=== PATIENT | male | born 1950 | race Caucasian/White ===

== ENCOUNTER 2025-05-16 14:03 | Emergency (ER) | payer OTHER, SELFPAY ==
--- OUTSIDE RECORDS SUMMARY | 2025-04-09 05:30 | XMS_ITS | Continuity of Care Document ---
Author Organization [facility] Address [address] [place] [address] Phone Care Team Providers Care Upholstery Handler Name Role Phone Rubina SMITH Roney Unavailable Unavailable Allergies, Adverse Reactions, Alerts Substance Reaction Status Criticality No Known Allergies Active No Inform ation Medications Medication Instructions Dosage Effective Dates (start - stop) Status Comments losartan 50 mg tablet take 1 tablet by oral route every day 50 MG - Active colestipol 1 gram tablet take 2 tablet by oral route 2 times every day swallowing whole with any liquid. Do not crush, chew and/or divide. 2 G - Active Restasis 0.05 % eye drops in a dropperette instill 1 drop by ophthalmic route every 12 hours into affected eye(s) 1.00 drop - Active Rocklatan 0.02 %-0.005 % eye drops INSTILL 1 DROP IN EACH EYE AT BEDTIME - Active Artificial Tears (PF) 0.1 %-0.3 % drops in a dropperette [place] BID OU - Active macular shield multivitamin ORAL TABLET 2 PO BID - Active doxazosin 2 mg tablet - Active furosemide 20 mg tablet TAKE 1 TABLET BY MOUTH TWICE A DAY - Active metoprolol tartrate 25 mg tablet - Active pantoprazole 40 mg tablet,delayed release - Active lisinopril 20 mg tablet TAKE 1 TABLET BY MOUTH EVERY DAY - Active potassium chloride ER 10 mEq tablet,extended release TAKE 1 TABLET BY MOUTH EVERY DAY - Active cyclosporine 0.05 % eye drops in a dropperette INSTILL ONE DROP IN BOTH EYES TWICE A DAY - Active Restasis 0.05 % eye drops in a dropperette instill 1 drop by ophthalmic route every 12 hours into affected eye(s) 1.00 drop - No Longer Active Procedures Procedure Date VISUAL FIELD- EXTENDED GDX Retina EYE EXAM & TREATMENT FUNDUS PHOTOGRAPHY EYE EXAM ESTABLISHED PAT Results Test Name Date and Time Measure Units Reference Range Abnormal Flag Status Commen ts Panel Description: [id number] Final Image Zeiss Result 3 Panel Description: [id number] Final Image Zeiss Result 4 Panel Description: [id number] Final Image Zeiss Result 1 Panel Description: [id number] Final Image Zeiss Result 2 Advance Directives Directive Yes / No Effective Date File Name No Information Encounters Encounter Description Practice Location Reason(s) For Visit Diagnoses Date Provider Providers Copied on Encounter [facility], [address] [place] [address], [id number], [place] tel:[phone] [facility] macular degeneration (chief complaint) Anterior corneal dystrophy of both eyesPseudoph akiaKeratoco njunctivitis sicca of both eyesPVD (posterior vitreous detachment), both eyesSquamous blepharitis of both upper and lower eyelid of right eyeSquamous blepharitis of both upper and lower eyelid of left eyePrimary open angle glaucoma (POAG) of both eyes, mild stageNonexud ative age-related macular degeneration , bilateral, early dry stageChronic allergic conjunctivit is 5 Rubina Sim. [address] [facility], [address], [place], [place], [id number], [place]. tel:[phone] Referring Provider: Roney Cespedes, [id number] [place] [address] [address], [place], [address]. tel:[phone] [facility], [address] [place] [address], [place], [place], [id number], tel:[phone] [facility] No Information 5 Rubina Sim. [address] [facility], [address], [place], [place], [id number], . tel:[phone] Referring Provider: Roney Cespedes, [address] [place] [address] [address], [place], [address]. tel:[phone] [facility], [address] [place] [address], [id number], tel:[phone] [facility] Follow up Glaucoma (chief complaint) Chronic allergic conjunctivit isNonexudati ve age-related macular degeneration , bilateral, early dry stagePrimary open angle glaucoma (POAG) of both eyes, mild stageKeratoc onjunctiviti s sicca of both eyesPseudoph akiaAnterior corneal dystrophy of both eyesSquamous blepharitis of both upper and lower eyelid of right eyeSquamous blepharitis of both upper and lower eyelid of left eyePVD (posterior vitreous detachment), both eyes 5 Rubina Sim. [address] [place] [address], [address], [place], [place], [id number], [place]. tel:[phone] Referring Provider: Roney Cespedes, [address] [place] [address] [address], [place], [address]. tel:[phone] [facility], [address] [place] [address], [id number], tel:[phone] [facility] Chronic allergic conjunctivit isNonexudati ve age-related macular degeneration , bilateral, early dry stagePrimary open angle glaucoma (POAG) of both eyes, mild stageKeratoc onjunctiviti s sicca of both eyesPseudoph akiaAnterior corneal dystrophy of both eyesSquamous blepharitis of both upper and lower eyelid of right eyeSquamous blepharitis of both upper and lower eyelid of left eyePVD (posterior vitreous detachment), both eyes 5 Rubina Miller [address], [address], [place], [id number], [place]. tel:[phone] Family History Family Member Type Diagnosis Age At Onset Problem Family history of Macular de generation Payers Payer name Insurance type Covered democrat ID Authorchar morton(s) [employer] H[employer] [id number] Social History Type Description Quantity Date Captured Comments Alcohol Use Details Caffeine Use Details Unknown Tobacco Use Status Current non-smoker Smoking Status Never smoker Sex Male Chief Complaint And Reason For Visit From encounter dated '04/09/2025 11:30'. macular degeneration (chief complaint). Description: The 75 year old patient presents for evaluation of macular degeneration in the right eye and left eye. The condition is significant. It affects OU. It occurs always. Pt states about the same in terms of eyes. Reason For Referral Reason For Referral No Information Plan Of Treatment Date Type Action Status Appointment Roney Brown-6MO BOOKED Future Order: Radiology Order Ze iss VF1 OA STACY ([id number]), Sent on: Sent History Of Present Illness Encounter Date Complaint History Of Prese nt Illness macular degeneration The 75 year old patient presents for evaluation of macular degeneration in the right eye and left eye. The condition is significant. It affects OU. It occurs always. Pt states about the same in terms of eyes. Follow up Glaucoma The 74 year o ld patient presents for evaluation of Follow up Glaucoma in the right eye and left eye. 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 Impression/Plan Related to Prima ry open angle glaucoma (POAG) of both eyes, mild stage Impression/Plan Related to Anter ior corneal dystrophy of both eyes Impression/Plan Related to Pseud ophakia Impression/Plan Related to Kerat oconjunctivitis sicca of both eyes Impression/Plan Related to PVD ( posterior vitreous detachment), both eyes Impression/Plan Related to Squam ous blepharitis of both upper and lower eyelid of left eye Impression/Plan Related to Anter ior corneal dystrophy of both eyes Impression/Plan Related to Pseud ophakia Impression/Plan Related to Kerat oconjunctivitis sicca of both eyes Impression/Plan Related to PVD ( posterior vitreous detachment), both eyes Impression/Plan Related to Squam ous blepharitis of both upper and lower eyelid of left eye Impression/Plan Related to Squam ous blepharitis of both upper and lower eyelid of right eye Impression/Plan Related to Prima ry open angle glaucoma (POAG) of both eyes, mild stage Impression/Plan Related to Nonex udative age-related macular degeneration, bilateral, early dry stage Impression/Plan Related to Chron ic allergic conjunctivitis Impression/Plan Related to PVD ( posterior vitreous detachment), both eyes Impression/Plan Related to Squam ous blepharitis of both upper and lower eyelid of left eye Impression/Plan Related to Squam ous blepharitis of both upper and lower eyelid of right eye Impression/Plan Related to Anter ior corneal dystrophy of both eyes Impression/Plan Related to Pseud ophakia Impression/Plan Related to Kerat oconjunctivitis sicca of both eyes Impression/Plan Related to Prima ry open angle glaucoma (POAG) of both eyes, mild stage Impression/Plan Related to Nonex udative age-related macular degeneration, bilateral, early dry stage Impression/Plan Related to Chron ic allergic conjunctivitis Assessments Type Assessment Date assessment Anterior corneal dystrophy of hilary th eyes impression Anterior corneal dystrophy of hilary th eyes: H18.593. assessment Pseudophakia impression Pseudophakia: Z96.1. assessment Keratoconjunctivitis sicca of hilary th eyes impression Keratoconjunctivitis sicca of hilary th eyes: H16.223. assessment PVD (posterior vitreous detachme nt), both eyes impression PVD (posterior vitreous detachme nt), both eyes: H43.813. 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 assessment Primary open angle glaucoma (POA G) of both eyes, mild stage impression Primary open angle g laucoma (POAG) of both eyes, mild stage: H40.1131.Tmax: OD 20, OS 21 assessment Nonexudative age-rel ated macular degeneration, bilateral, early dry stage impression Nonexudative age-rel ated macular degeneration, bilateral, early dry stage: H35.3131. assessment Chronic allergic conjunctivitis impression Chronic allergic conjunctivitis: H10.45. Patient Care Teams Name Effective Dates (start - stop) Status Members No Information
--- NOTE | ~2025-05-16 | XR_ITS ---
EXAMINATION: XR tibia fibula RT 2V DATE: 05/16/2025 15:37 INDICATION: Trauma. Laceration. TECHNIQUE: 4 views of the right lower leg were obtained. COMPARISON: None. FINDINGS: No acute fracture or dislocation of the tibia and fibula are seen, particularly proximal tibia and fibula. Large soft tissue laceration is noted in the lateral aspect of proximal lower leg. 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 IMPRESSION: 1. No acute bony lesions of tibia and fibula. Significant soft tissue injury to the lateral aspect of proximal lower leg. Reviewed, dictated and finalized at location T. 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
[2025-05-16 14:19] VITALS: BP 158/73; PULSE 100; RESP 18; TEMP 36.8; O2SAT 100
--- OUTSIDE RECORDS SUMMARY | 2025-05-16 14:57 | XMS_ITS | Encounter Summary ---
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 Name Role Phone Oscar Desir MD Primary Care Provider + Haresh Murdock MD Unavailable [phone] Reason for Visit * Reason Onset Date Comments Medical Question/Miscellaneous 05/10/2025 Encounter Details Date Type Department Care Team (Late st Contact Info) Description 05/10/2025 Telephone [facility] [address] [address] Oscar Desir MD [address] [place] [address] Medical Question/Miscellaneous Social History Tobacco Use Types Packs/Day Years Used Date Smoking Tobacco: Never Smokeless Tobacco: Current Chew Alcohol Use Standard Drinks/Week Comments Yes 21 (1 standard drink = 0.6 oz pu re alcohol) PHQ-2 Answer Date Recorded PHQ-2 Total Score (If total score is 3 or more points, staff should administer the PHQ-9) 0 08/11/2024 AUDIT-C Answer Date Recorded Q1: How often do you have a drink containing alcohol? 4 or more times a week 01/19/2025 Q2: How many drinks containi ng alcohol do you have on a typical day when you are drinking? 1 or 2 Q3: How often do you have si x or more drinks on one occasion? Never 01/19/2025 Personal Safety Answer Date Recorded Have you ever been in or are you currently in a harmful physical or emotional relationship or is someone making you feel afraid or unsafe? 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 Renal function improved. Uric acid now normal. Continue allopurinol 100 mg daily. Foot is much better and swelling is down. Please call patient return 2 months TAL FLAT GRINDER * Telephone Encounter - Janice Ruiz - 05/10/2025 10:15 AM CST Medical Question/Miscellaneous Caller???s Concern: Patient stated she call the week before and is still waiting on someone to call you back about lab results and his follow up appt. Does message need to be routed? Yes-Action Needed TAL FLAT GRINDER documented in this encounter Plan of Treatment Not on file documented as of this encounter Visit Diagnoses Not on filedocumented in this encounter Care Teams Continuous Yarn Dyeing Machine Operator Relationship Specialty Start Date End Date Oscar Desir MD [address] [address] PCP - General 08/24/16 Haresh Murdock MD [address] [address] Medical Oncologist/Bar Host Medical Oncology 07/14/19 documented as of this encounter
--- OUTSIDE RECORDS SUMMARY | 2025-05-16 14:57 | XMS_ITS | Encounter Summary ---
Author Organization [facility] Healthcare Address [address] [place] [address] Care Team Providers Care Athletic Shoe Designer Name Role Phone Oscar Desir MD Primary Care Provider + Haresh Murdock MD Unavailable [phone] Reason for Visit * Reason Onset Date Comments Medical Question/Miscellaneous 04/19/2025 Encounter Details Date Type Department Care Team (Late st Contact Info) Description 04/19/2025 Telephone [facility] [address] [address] Oscar Desir MD [address] [place] [address] Medical Question/Miscellaneous Social History Tobacco Use [...] on file Legal Sex Male 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 Need to go over lab results. AL DESIGN TEACHER * Telephone Encounter - April Clemons - 04/19/2025 11:22 AM FLORAL DESIGN TEACHER Medical Question/Miscellaneous Caller???s Concern: Rani patient's spouse ( verified HIPAA) said her had gout and was put on medicine allopurinol. She wasn't sure if he needs a follow up appointment with Dr. Desir to check his kidneys or more labs. Please call her back to discuss. Does message need to be routed? Yes-Action Needed AL DESIGN TEACHER documented in this encounter Plan of Treatment Not on file documented as of this encounter Visit Diagnoses Not on filedocumented in this encounter Care Teams Athletic Shoe Designer Relationship Specialty Start Date End Date Oscar Desir MD [address] [facility] [address], [place] [address] PCP - General 08/24/16 Haresh Murdock MD [address], [place] [address] Medical Oncologist/Torpedo Shooter Medical Oncology 07/14/19 documented as of this encounter
--- OUTSIDE RECORDS SUMMARY | 2025-05-16 14:57 | XMS_ITS | Clinical Summary ---
Author Organization [facility] Address [address] [place] [address] Care Team Providers Care Montessori Lead Teacher Name Role Phone Oscar Desir MD Primary Care Provider + Haresh Murdock MD Unavailable [phone] Allergies Active Allergy Reactions Criticality Noted Date Comments Mold Unknown 12/11/2024 Medications cycloSPORINE (RESTASIS) 0.05 % ophthalmic emulsion Administer 1 drop into both eyes 2 (two) times a day Active Rocklatan 0.02-0.005 % drops INSTILL ONE DROP AT BEDTIME TO BOTH EYES DIRECTED 10/18/19 23 Active colestipoL (COLESTID) 1 gram tablet Take 1 tablet (1 g total) by mouth 2 (two) times a day 60 tablet 01/29/20 25 026 Active allopurinoL (ZYLOPRIM) 100 mg tablet Take 1 tablet (100 mg total) by mouth daily 90 tablet 1 01/30/20 25 026 Active losartan (COZAAR) 50 mg tablet Take 1 tablet (50 mg total) by mouth daily 90 tablet 1 01/30/[address] (PROTONIX) 40 mg EC tablet TAKE 1 TABLET BY MOUTH EVERY DAY 90 tablet 1 01/31/20 25 Active furosemide (LASIX) 20 mg tablet TAKE 1 TABLET BY MOUTH TWICE A DAY 180 tablet 1 02/02/20 25 Active ketoconazole (NIZORAL) 2 % shampoo Apply topically 2 (two) times a week Apply to damp skin on danielle and scalp, lather, leave on 5 minutes, and rinse 120 mL 3 02/12/20 25 Active predniSONE (DELTASONE) 10 mg tablet Take 2 tablets (20 mg) by mouth daily 30 tablet 04/05/20 25 026 Active metoprolol tartrate (LOPRESSOR) 25 mg immediate release tablet TAKE 1 TABLET BY MOUTH TWICE A DAY 180 tablet 1 04/24/20 25 Active metoprolol tartrate (LOPRESSOR) 25 mg immediate release tablet TAKE 1 TABLET BY MOUTH TWICE A DAY 180 tablet 2 08/29/19 25 025 Discontinued Active Problems Problem Noted Date Diagnosed Date Tophi 01/28/2025 Irritable bowel syndrome with diarrhea Glaucoma 12/11/2024 Mixed hyperlipidemia 08/11/2024 Pancreatic cyst 08/11/2024 Diverticulosis of large inte francine without perforation or abscess without bleeding 01/24/2023 Polyp of colon 01/24/2023 Stage 3a chronic kidney disease 02/13/2022 Edema 11/16/2020 Assessment & Plan (11/16/2020 4:54 PM CDT): Stable, consider increase Lasix dosage, check labs today to assess renal function and electrolytes Benign prostatic hyperplasia 11/16/2020 Assessment & Plan (11/16/2020 4:54 PM CDT): No significant obstructive symptoms, repeat PSA and urinalysis today Venous stasis dermatitis of both lower extremiti es 03/16/2020 Assessment & Plan (11/16/2020 4:55 PM CDT): No ulceration noted, consider steroid cream, compression stocking, will follow- up with derm Leg vein thromboembolism, superficial, right GERD (gastroesophageal reflux disease) 9 Assessment & Plan (11/16/2020 4:55 PM CDT): Asymptomatic, continue proton pump inhibitor, encouraged weight loss Assessment & Plan (12/04/2018 7:35 AM CDT): Improved, continue current regimen Abnormal CT scan of lung 11/30/2018 Assessment & Plan (11/30/2018 9:06 AM CDT): Question of pneumonia. I do not see clinical signs of this and have stopped the IV antibiotics. Can reconsider if his clinical situation warrants it. To use IS for atelectasis and pneumonia prevention. Colon carcinoma 11/19/2018 Assessment & Plan (11/16/2020 4:55 PM CDT): Status post resection October of 2018 no evidence disease, repeat CEA next visit Assessment & Plan (12/02/2018 7:55 AM CDT): Status post laparoscopic right colectomy about 2 weeks ago, ileus improved Assessment & Plan (11/24/2018 8:58 AM CDT): Postop day 4, status post laparoscopic right colectomy. Path noted. Ileus persist to but may be improved slightly, observe off NG tube, consider TPN if not resolved Syncope 11/14/2018 Assessment & Plan (12/02/2018 7:55 AM CDT): No further symptoms, sinus rhythm on telemetry. MARY within normal limit, increase activity and observe Assessment & Plan (11/19/2018 8:21 AM CDT): No further symptoms, reveals sinus rhythm, hemoglobin stable, observe Hypertension, essential 11/14/2018 Assessment & Plan (11/16/2020 4:56 PM CDT): Blood pressure adequate, continue med, repeat labs today encouraged further weight loss Assessment & Plan (12/01/2018 8:28 AM CDT): Blood pressure stable observe current meds Assessment & Plan (11/24/2018 8:57 AM CDT): Blood pressure stable observe current meds Acute blood loss anemia 11/14/2018 Overview (11/16/2018): Added automatically from request for surgery [id number] Assessment & Plan (12/01/2018 8:30 AM CDT): Hemoglobin stable observe Resolved Problems Problem Noted Date Diagnosed Date Resolved Date Paronychia of finger, right 01/18/2025 01/28/2025 Finger swelling 08/11/2024 01/28/2025 Medicare annual wellness visit, subsequent 11/16/2020 03/21/2021 Assessment & Plan (11/16/2020 4:54 PM CDT): Colonoscopy 2019 unremarkable repeat 2022 Vaccine up-to-date except recommend shingles and Tdap later this year Skin lesion 11/16/2020 01/28/2025 Assessment & Plan (11/16/2020 4:54 PM CDT): Concern for possible skin cancer, refer to dermatology Ileus 11/22/2018 07/07/2019 Assessment & Plan (12/04/2018 7:34 AM CDT): Clinically improved, observe clear liquid diet and increase activity today Assessment & Plan (11/24/2018 8:56 AM CDT): NG tube removed by accident., passing flatus. Discussed with surgery, observe for now, continue IV fluid. Consider TPN if bowel function does not improve Acute kidney injury 11/15/2018 09/15/19 25 Assessment & Plan (12/04/2018 7:35 AM CDT): Renal function back to baseline, continue gentle hydration until p.o. Intake increased Assessment & Plan (11/21/2018 7:47 AM CDT): Renal function back to baseline, observe with current fluids Iron deficiency anemia 11/14/201811/30 Assessment & Plan (11/24/2018 8:56 AM CDT): Hemoglobin stable, observe Hypokalemia 11/14/2018 11/30/2018 Assessment & Plan (11/19/2018 8:22 AM CDT): Potassium 3.3 will give 20 mEq p.o. Today Anemia 11/14/2018 11/30/2018 Overview (11/16/2018): Added automatically from request for surgery [id number] Gastrointestinal hemorrhage 11/14/2018 11/30/2018 Overview (11/16/2018): Added automatically from request for surgery [id number] Assessment & Plan (11/18/2018 9:43 AM CDT): Due to bleeding from the colon mass, await colorectal surgery input Hyponatremia 02/26/2018 11/30/2018 Encounters Date Type Department Care Team Description 05/10/2025 Telephone [facility] [address] [place] [address] [place] [phone] Oscar Desir MD Medical Question/Miscellane ous 04/28/2025 Telephone [facility] Care Organization [address] [place] [id number] Candace Bruner Chart Review (Med adherence) 04/19/[address] [address] Oscar Desir MD Medical Question/Miscellane ous 04/05/2025 2:38 PM HEALTH ADVOCATE - 04/05/2025 11:59 PM HEALTH ADVOCATE Hospital Encounter [facility] [address] [place] [address] Discharge Disposition: Discharge to home or self care 04/05/2025 2:15 PM HEALTH ADVOCATE Office Visit [address] [place] [phone] Oscar Desir MD Hypertension, essential (Primary Dx); Colon carcinoma (HCC); Gastroesophageal reflux disease, unspecified whether esophagitis present; Stage 3a chronic kidney disease (HCC); Edema, unspecified type; Irritable bowel syndrome with diarrhea; Gout, unspecified cause, unspecified chronicity, unspecified site 03/02/2025 11:30 AM CDT Procedure visit 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 Medicine Dermatology [address] [place] [phone] Vanesa Ragsdale PA Surgical pathology from Last 3 Months Immunizations Immunization Administration Dates Next Due COVID-19 mRNA ([employer]) 0.3 m L (30 mcg) vaccine (12 years and up) 04/02/2023 Influenza, Quadrivalent, Hig h Dose, Preservative Free, Intrr 04/22/2023,02/13/2022,03/21/2021,03/16 Influenza, Split 02/19/2018 Influenza, Trivalent, High D ose, Split, Preservative Free, Intramuscular 04/05/2025,02/24/2024,02/09/2019,02/26 Pfizer SARS-CoV-2 Monovalent Vaccination (12+ Yrs) PURPLE 03/01/2022,04/28/2021,10/04/2020,09/13 Pfizer Sars-Cov-2 Bivalent V accination (12+ YRS) 02/28/2022 Pneumococcal Conjugate PCV 13 08/08/2016 Pneumococcal Polysaccharide PPV23 01/17/2018 Surgical History Surgery Date Site/Laterality Comments CATARACT EXTRACTION Bilateral GLAUCOMA SURGERY LAPAROSCOPIC COLON RESECTION 05/27/2018 - 05/26/2019 Medical History Medical History Date Comments Hypertension Hypertension Hx Other Medical Psoriasis Anemia GERD (gastroesophageal reflux disease) Cataract Glaucoma Colon cancer (HCC) Family History Medical History Relation Name Comments Colon cancer Father Cancer, colon; Other Mother ? heart problem ; Relation Name Status Comments Father Mother Social History Tobacco Use Types Packs/Day Years [...] on file Legal Sex Male 10:41 AM HEALTH ADVOCATE Gender Identity Not on file Sexual Orientation Not on file Last Filed Vital Signs Vital Sign Reading Time Taken Comments Blood Pressure 134/84 04/05/2025 2:01 PM HEALTH ADVOCATE Pulse 88 04/05/2025 2:01 PM HEALTH ADVOCATE Temperature 36.3 C (97.4 F) 02/16/2025 1:22 PM CDT Respiratory Rate 20 02/16/2025 1:22 PM CDT Oxygen Saturation 98% 04/05/2025 2:01 PM HEALTH ADVOCATE Inhaled Oxygen Concentration - - Weight 98.8 kg (217 lb 12.8 oz) 04/05/2025 2:01 PM HEALTH ADVOCATE Height 167.6 cm (5' 6) 04/05/2025 2:01 PM HEALTH ADVOCATE Body Mass Index 35.15 04/05/2025 2:01 PM HEALTH ADVOCATE Plan of Treatment Health Maintenance Due Date Last Done Comments Hepatitis C Screening 1950 DTaP/Tdap/Td Vaccine (1 - Tdap) 1959 Hepatitis B Screening 1966 Zoster Vaccine (1 of 2) 1998 Covid-19 Vaccine (7 - 2024-2 6 season) 2025 04/02/2023, 03/01/2022, 02/28/2022, Additional history exists Depression Screening 08/11/2025 08/11/2024, 02/24/2024, 08/01/2022, Additional history exists Well Visit 65+ 08/11/2025 08/11/2024, 07/25, 02/13/2022, Additional history exists Fall Risk Assessment 01/19/2026 01/19/2025, 08/11/2024, 02/24/2024, Additional history exists Pneumococcal vaccine 65+ Completed 01/17/2018, 07/25 Colon Cancer Screening-CT Colonography Discontinued 12/03/2019, 12/03/2019, 11/17/2018, Additional history exists Colon Cancer Screening-Colonoscopy Discontinued 12/03/2019, 12/03/2019, 11/17/2018, Additional history exists Colon Cancer Screening-DNA Stool Discontinued 12/03/2019, 12/03/2019, 11/17/2018, Additional history exists Colon Cancer Screening-FIT Discontinued 12/02, 12/03/2019, 11/17/2018, Additional history exists Colon Cancer Screening-FOBT Discontinued 01/2020, 12/03/2019, 11/17/2018, Additional history exists Colon Cancer Screening-Sigmoidoscopy Discontinued 12/03/2019, 12/03/2019, 11/17/2018, Additional history exists Colorectal Cancer Screening Discontinued Influenza Vaccine Completed 04/05/2025, , 04/22/2023, Additional history exists Procedures Procedure Name Priority Date/Time Associated Diagnosis Comments EGFR Routine 04/05/2025 2:32 PM HEALTH ADVOCATE Stage 3a chronic kidney disease (HCC) BASIC METABOLIC PANEL Routine 04/05/2025 2:32 PM HEALTH ADVOCATE Stage 3a chronic kidney disease (HCC) URIC ACID Routine 04/05/2025 2:32 PM HEALTH ADVOCATE Gout, unspecified cause, unspecified chronicity, unspecified site COLONOSCOPY 12/03/2019 8:35 AM CDT from Last 3 Months or Most Recently Relevant to Health Maintenance Results * (ABNORMAL) eGFR (04/05/2025 2:32 PM HEALTH ADVOCATE) eGFR 50(L) >=60 mL/min/1. 73 m2 Comment: Interpretive Data Reference Interval Normal >/= 90 mL/min/1.73m2 Mildly decreased* 60 - 89 mL/min/1.73m2 Mildly to moderately decreased 45 - 59 mL/min/1.73m2 Moderately to severely decreased 30 - 44 mL/min/1.73m2 Severely decreased 15 - 29 mL/min/1.73m2 Kidney Failure < 15 mL/min/1.73m2 *Relative to young adult level Estimated glomerular filtration rate is determined by the 2020 CKD-EPI equation recommended by the National Kidney Foundation (A Unifying Approach to GFR Estimation: Recommendations of the NKF-ASK Task Force on Reassessing the Inclusion of Race in Diagnosing Kidney Disease, JASN 2020). The CKD-EPI equation should not be used for patients with unstable renal function and has not been validated in children and those over 70. Current interpretive data was last reviewed 2021. Blood 04/05/2025 2:32 PM HEALTH ADVOCATE 04/05/2025 6:31 PM HEALTH ADVOCATE Oscar Desir MD LAB BLOOD ORDERABLES Fin al Result Performing Organization Address City/[facility]/ZIP Co de Phone Number [facility] [address] [employer] [place], [place] [id number] * Uric acid (04/05/2025 2:32 PM HEALTH ADVOCATE) Uric acid 5.5 3.0 - 8.0 mg/dL Blood 04/05/2025 2:32 PM HEALTH ADVOCATE 04/05/2025 6:31 PM HEALTH ADVOCATE Oscar Desir MD LAB BLOOD ORDERABLES Fin al Result [facility] [address] [facility] [place] [address] * (ABNORMAL) Basic metabolic panel (04/05/2025 2:32 PM HEALTH ADVOCATE) Sodium 133(L) 135 - 145 mmol/L Potassium, pl 4.1 3.3 - 4.9 mmol/L [facility] Chloride 94(L) 97 - 110 mmol/L [facility] CO2 26 22 - 32 mmol/L [facility] Anion gap 13 2 - 15 mmol/L [facility] BUN 16 6 - 25 mg/dL [facility] Creatinine 1.45(H) 0.80 - 1.30 mg/dL [facility] Glucose 107 70 - 199 mg/dL [facility] Comment: Interpretive Data Fasting glucose >/= 126 mg/dl is diagnostic for diabetes. Fasting is defined as no caloric intake for at least 8 hours. Fasting glucose between 100 mg/dl to 125 mg/dl is diagnostic of prediabetes. In a patient with classic symptoms of hyperglycemia or hyperglycemic crisis, a random glucose >/= 200 mg/dl is diagnostic for diabetes. In the absence of unequivocal hyperglycemia, results should be confirmed by repeat testing. The classification and Diagnosis of Diabetes Diabetes Care 202; 46: S19-S40. Current interpretive data was last revised 2022. Calcium 9.0 8.5 - 10.3 mg/dL [facility] Blood 04/05/2025 2:32 PM HEALTH ADVOCATE 04/05/2025 6:31 PM HEALTH ADVOCATE us Oscar Desir MD LAB BLOOD ORDERABLES Fin al Result [facility] [address] Department [place] [address] * COLONOSCOPY (12/03/2019 8:35 AM CDT) Anatomical Region Laterality Modality Other Narrative Procedure Note Lio Cisneros MD - 12/03/2019 8:35 AM CDT ENDOSCOPY LAB Patient Name: Roney Brown Procedure Date: 12/03/2019 8:35 AM Admit Type: Outpatient Room: [facility] 4 Date of : 1950 Instrument Name: [id number] Gender: Male Note Status: Finalized Procedure: Colonoscopy Indications: High risk colon cancer surveillance: Personal historyof colon cancer, Last colonoscopy: October 2018 Providers: Lio Cisneros M.D. Referring MD: Oscar Desir M.D. Medicines: Propofol per Anesthesia Complications: No immediate complications. Estimated Blood Loss: Estimated blood loss: none. Procedure: Pre-Anesthesia Assessment: - Prior to the procedure, a History and Physical was performed, and patient medications and allergies were reviewed. The patient is competent. The risks andbenefits of the procedure and the sedation options and riskswere discussed with the patient. All questions were answered and informed consent was obtained. Patientidentification and proposed procedure were verified by the physician,the nurse and the anesthesiologist in the procedure room. Mental Status Examination: alert and oriented. Airway Examination: normal oropharyngeal airway and neck mobility. Respiratory Examination: clear toauscultation. CV Examination: normal. Prophylactic Antibiotics: The patient does not require prophylactic antibiotics.Prior Anticoagulants: The patient has taken no previous anticoagulant or antiplatelet agents. ASA Grade Assessment: III - A patient with severe systemicdisease. After reviewing the risks and benefits, the patient was deemed in satisfactory condition to undergo theprocedure. The anesthesia plan was to use monitored anesthesiacare (MAC). Immediately prior to administration ofmedications, the patient was re-assessed for adequacy to receive sedatives. The heart rate, respiratory rate, oxygen saturations, blood pressure, adequacy of pulmonary ventilation, and response to care were monitored throughout the procedure. The physical status of the patient was re-assessed after the procedure. - The risks and benefits of the procedure and thesedation options and risks were discussed with the patient. All questions were answered and informed consent wasobtained. The benefits, risks and alternatives of the procedureand sedation were discussed and informed consent wasobtained. All questions were answered. Please refer to the signed informed consent document in the medical record. Thescope was passed under direct vision. The Colonoscope was introduced through the anus and advanced to the the ileocolonic anastomosis. The colonoscopy was performed without difficulty. The patient tolerated the procedure well. The quality of the bowel preparation wasevaluated using the BBPS (Lyndon Bowel Preparation Scale) with scores of: Right Colon = 3 (entire mucosa seen wellwith no residual staining, small fragments of stool oropaque liquid), Transverse Colon = 3 (entire mucosa seen well with no residual staining, small fragments of stool or opaque liquid) and Left Colon = 3 (entire mucosa seenwell with no residual staining, small fragments of stool or opaque liquid). The total BBPS score equals 9. Thequality of the bowel preparation was good. The bowelpreparation used was SUPREP. Bowel prep was administered using asplit dose. Findings: There was evidence of a prior end-to-end ileo-colonic anastomosis atthe hepatic flexure. This was patent and was characterized by healthy appearing mucosa. The anastomosis was traversed. The entire examined colon appeared normal on direct and retroflexion views. Impression: - Patent end-to-end ileo-colonic anastomosis, characterized by healthy appearing mucosa. - The entire examined colon is normal on direct and retroflexion views. - No specimens collected. Recommendation: - Discharge patient to home. - Repeat colonoscopy in 3 years for surveillance. Attending Participation: I personally performed the entire procedure. Electronically signed by Lio Cisneros MD Lio Cisneros M.D. 12/03/2019 9:36:08 AM Number of Addenda: 0 Note Initiated On: 12/03/2019 8:35 AM Scope In: Scope Out: Lio Cisneros MD ENDOSCOPY PROCEDURES Final Re sult from Last 3 Months or Most Recently Relevant to Health Maintenance Insurance [facility] Advance Directives For more information, please contact: [phone] * Full Code (Latest Code Status on File) Date Activated Date Inactivated Comments 12/03/2019 8:22 AM 12/03/2019 4:09 PM * Full Code Date Activated Date Inactivated Comments 11/29/2018 10:44 PM 12/06/2018 5:19 PM * Full Code Date Activated Date Inactivated Comments 11/14/2018 1:50 PM 11/25/2018 8:57 PM Care Teams Montessori Lead Teacher Relationship Specialty Start Date End Date Oscar Desir MD [address] [address] PCP - General 08/24/16 Haresh Murdock MD [address], [place] [address] Medical Oncologist/Supply Specialist Medical Oncology 07/14/19
--- OUTSIDE RECORDS SUMMARY | 2025-05-16 14:57 | XMS_ITS | Encounter Summary ---
Author Organization [facility] Healthcare Address [address] [place] [address] Care Team Providers Care Content Development Specialist Name Role Phone Oscar Desir MD Primary Care Provider + Haresh Murdock MD Unavailable [phone] Encounter Details Date Type Department Care Team (Late st Contact Info) Description 11/11/2020 Telephone [facility] - [facility] [address] [place] [address] Transcribed Order, Provider Social History Tobacco Use Types Packs/Day Years Used Date Smoking Tobacco: Never Smokeless Tobacco: Current Chew Alcohol Use Standard Drinks/Week Comments Yes 21 (1 standard drink = 0.6 oz pu re alcohol) PHQ-2 Answer Date Recorded PHQ-2 Total Score (If total score is 3 or more points, staff should administer the PHQ-9) 0 08/08/2020 Sex and Gender Information Value Date Recorded Sex Assigned at Not on file Legal Sex Male 10:41 AM TRAINING REPRESENTATIVE Gender Identity Not on file Sexual Orientation Not on file documented as of this encounter Plan of Treatment Not on file documented as of this encounter Visit Diagnoses Not on filedocumented in this encounter Care Teams Content Development Specialist Relationship Specialty Start Date End Date Oscar Desir MD [address] [address] PCP - General 08/24/16 Haresh Murdock MD [address] [address] Medical Oncologist/Senior Architectural Designer Medical Oncology 07/14/19 documented as of this encounter
--- OUTSIDE RECORDS SUMMARY | 2025-05-16 14:57 | XMS_ITS | Encounter Summary ---
Author Organization [facility] Healthcare Address [address] [place] [address] Care Team Providers Care Station Cook Name Role Phone Oscar Desir MD Primary Care Provider + Haresh Murdock MD Unavailable [phone] Encounter Details Date Type Department Care Team (Late st Contact Info) Description 11/06/2019 Telephone [facility] Neuro Diagnostics [address] [place] [address] Stephanie Meyer MS Social History Tobacco Use Types Packs/Day Years Used Date Smoking Tobacco: Never Smokeless Tobacco: Current Alcohol Use Standard Drinks/Week Comments Yes 10 (1 standard drink = 0.6 oz pu re alcohol) PHQ-2 Answer Date Recorded PHQ-2 Score 0 01/14/2019 Sex and Gender Information Value Date Recorded Sex Assigned at Not on file Legal Sex Male 10:41 AM FUELS SALES REPRESENTATIVE Gender Identity Not on file Sexual Orientation Not on file documented as of this encounter Plan of Treatment Not on file documented as of this encounter Visit Diagnoses Not on filedocumented in this encounter Care Teams Station Cook Relationship Specialty Start Date End Date Oscar Desir MD [address] [address] PCP - General 08/24/16 Haresh Murdock MD [address] [address] Medical Oncologist/Boiler Or Engine Operator Medical Oncology 07/14/19 documented as of this encounter
--- NOTE | 2025-05-16 15:56 | ED_ITS ---
HPI - Extremity Injury (Lower) General Chief Complaint: Extremity Injury, Lower <Tory Donaldson PA-C - Last Filed: 05/16/25 16:25> Stated Complaint: R leg injury <Tory Donaldson PA-C - Last Filed: 05/16/25 16:25> Time Seen by Provider: 05/16/25 14:18 <Tory Donaldson PA-C - Last Filed: 05/16/25 16:25> Source: patient <Tory Donaldson PA-C - Last Filed: 05/16/25 16:25> Mode of arrival: ambulatory <Tory Donaldson PA-C - Last Filed: 05/16/25 16:25> Limitations: no limitations <Tory Donaldson PA-C - Last Filed: 05/16/25 16:25> History of Present Illness HPI Narrative: This is a 75-year-old male that presents to the emergency department for laceration to the right lower leg. Reports he tripped over a wooden Pallet. He is unsure what he cut the leg on. He is not up-to-date on tetanus. Denies decreased range of motion or numbness. No other injuries or focal areas of pain <Tory Donaldson PA-C - Last Filed: 05/16/25 16:25> Related Data Allergies/Adverse Reactions: Allergies Allergy/AdvReac Type Severity Reaction Status Date / Time No Known Allergies Allergy Verified 05/16/25 15:37 <Tory Donaldson PA-C - Last Filed: 05/16/25 16:25> Review of Systems Review of Systems: All systems reviewed & are unremarkable except as noted in HPI and below <Tory Donaldson PA-C - Last Filed: 05/16/25 16:25> PMFSH Past Medical History Medical History: Medical History (Updated 05/16/25 @ 16:11 by Tory Donaldson PA-C) Hyperlipidemia Hypertension <Tory Donaldson PA-C - Last Filed: 05/16/25 16:25> Exam Narrative: GENERAL: Well-appearing, well-nourished, and in no acute distress. HEAD: Normocephalic, atraumatic. EYES: EOMI. EXTREMITIES: Normal range of motion. No edema. Right lower leg just below the knee with 15 cm linear laceration into subcutaneous tissue with muscle fascia exposed SKIN: Warm, dry, no rash. NEURO: No focal deficits. Alert and oriented x3. PSYCH: Normal mood and affect <Tory Donaldson PA-C - Last Filed: 05/16/25 16:25> Course AD OPERATIONS COORDINATOR/PA Physician Supervision I did review the chart did see the patient laceration agree with the transfer to Trauma surgery <Adolfo Baeza MD - Last Filed: 05/16/25 17:43> Vital Signs Vital signs: Vital Signs Temperature 36.8 C 05/16/25 14:19 Pulse Rate 100 05/16/25 14:19 Respiratory Rate 18 05/16/25 14:19 Blood Pressure 158/73 H 05/16/25 14:19 Pulse Oximetry 100 05/16/25 14:19 Oxygen Delivery Room Air 05/16/25 14:19 Temperature 36.8 C 05/16/25 14:19 Pulse Rate 100 05/16/25 14:19 Respiratory Rate 18 05/16/25 14:19 Blood Pressure 158/73 H 05/16/25 14:19 Pulse Oximetry 100 05/16/25 14:19 Oxygen Delivery Room Air 05/16/25 14:19 <Tory Donaldson PA-C - Last Filed: 05/16/25 16:25> Vital Signs Temperature 36.8 C 05/16/25 14:19 Pulse Rate 100 05/16/25 14:19 Respiratory Rate 18 05/16/25 14:19 Blood Pressure 158/73 H 05/16/25 14:19 Pulse Oximetry 100 05/16/25 14:19 Oxygen Delivery Room Air 05/16/25 14:19 Temperature 36.8 C 05/16/25 14:19 Pulse Rate 100 05/16/25 14:19 Respiratory Rate 18 05/16/25 14:19 Blood Pressure 158/73 H 05/16/25 14:19 Pulse Oximetry 100 05/16/25 14:19 Oxygen Delivery Room Air 05/16/25 14:19 <Adolfo Baeza MD - Last Filed: 05/16/25 17:43> Transfer Transfered to: [facility] <Tory Donaldson PA-C - Last Filed: 05/16/25 16:25> Transportation: Other (private vehicle) <Tory Donaldson PA-C - Last Filed: 05/16/25 16:25> Transfer rationale: Geriatric trauma <Tory Donaldson PA-C - Last Filed: 05/16/25 16:25> Accepting physician: Dr. Addison <Tory Donaldson PA-C - Last Filed: 05/16/25 16:25> [facility] Narrative Medical decision making narrative: Patient presents to the emergency department for very large laceration to the right lower leg. He is neurovascularly intact. Right tib-fib x-ray without acute osseous abnormalities or evidence of foreign body. Patient updated on tetanus. Given dose of Ancef. He was washed out here. Transfer to Trauma Center for complex, large laceration for further management <Tory Donaldson PA-C - Last Filed: 05/16/25 16:25> Differential Diagnosis Differential Diagnosis: laceration, abrasion, avulsion of skin <Tory Donaldson PA-C - Last Filed: 05/16/25 16:25> Imaging Data Radiologist's impression: ITS Impressions Tibia/Fibula X-Ray 05/16/25 15:37 IMPRESSION: 1. No acute bony lesions of tibia and fibula. Significant soft tissue injury to the lateral aspect of proximal lower leg. <Tory Donaldson PA-C - Last Filed: 05/16/25 16:25> ITS Impressions Tibia/Fibula X-Ray 05/16/25 15:37 IMPRESSION: 1. No acute bony lesions of tibia and fibula. Significant soft tissue injury to the lateral aspect of proximal lower leg. <Adolfo Baeza MD - Last Filed: 05/16/25 17:43> Critical Care Time Critical Care Time Critical Care Time: No <[email or web address] You Last Filed: 05/16/25 16:25> Discharge Plan Discharge Clinical Impression: Laceration of leg, right Qualifiers: Encounter type: initial encounter Qualified Code(s): S81.811A - Laceration without foreign body, right lower leg, initial encounter <Tory Donaldson PA-C - Last Filed: 05/16/25 16:25> Patient Disposition: Acute Care Hospital <Tory Donaldson PA-C - Last Filed: 05/16/25 16:25> Condition: Stable <Tory Donaldson PA-C - Last Filed: 05/16/25 16:25> Additional Instructions: Report directly to [address] Do not eat or drink <Tory Donaldson PA-C - Last Filed: 05/16/25 16:25> Patient Language: Citizen Of [place] <Tory Donaldson PA-C - Last Filed: 05/16/25 16:25> Follow-up/Referrals: Oscar Desir [Other] <Tory Donaldson PA-C - Last Filed: 05/16/25 16:25>
[2025-05-16] MEDS: TETANUS,DIPHTHERIA,AC PERTUSSIS ADULT (0.5 ML) BOOSTRIX IM (16:25)
== END 2025-05-16 16:34 | disposition short-term general hospital (02) ==
PROVIDERS: Emergency Provider Physician Assistant
DX: S81.811A Laceration without foreign body, right lower leg, initial encounter (principal); Z23 Encounter for immunization; I10 Essential (primary) hypertension; E78.5 Hyperlipidemia, unspecified; W18.09XA Striking against other object with subsequent fall, initial encounter
CPT/HCPCS: 73590; 90471; 90715; 96372; 99283; 99284; 99285; J0690; J2003